=== PATIENT | female | born 1980 | race American Indian/Alaskan Native ===

== ENCOUNTER 2017-06-19 05:31 | Emergency (ER) | payer BC ==
[2017-06-19 06:00] LABS: Basophils # (Auto) 0.1 K/mm3 (0.0-0.1); Basophils % (Auto) 1.2 % (0.0-1.8); Eosinophils # (Auto) 0.1 K/mm3 (0.0-0.4); Eosinophils % (Auto) 1.4 % (0.0-4.3); Hematocrit 38.1 % (30.3-42.9); Hemoglobin 13.1 gm/dl (10.1-14.3); Lymphocytes % (Auto) 51.9 % (13.4-35.0); Mean Corpuscular HGB Conc 34 % (30-34); Mean Corpuscular Hemoglobin 32 pg (28-32); Mean Corpuscular Volume 93 fl (79-97); Monocytes # (Auto) 0.4 K/mm3 (0.0-0.8); Monocytes % (Auto) 7.7 % (0.0-7.3); Platelet Count 295 K/mm3 (140-440); Red Blood Count 4.09 M/mm3 (3.65-5.03); Red Cell Distribution Width 13.9 % (13.2-15.2)
[2017-06-19 06:13] LABS: Bilirubin,Urine NEG (Negative); Blood,Urine SM (Negative); Color,Urine Yellow (Yellow); Mucus,Urine 3+ /HPF; Protein,Urine <15 mg/dL mg/dL (Negative); Urobilinogen,Urine < 2.0 mg/dL (<2.0)
[2017-06-19 06:15] LABS: Alanine Aminotransferase 11 units/L (7-56); Albumin 4.2 g/dL (3.9-5); BUN/Creatinine Ratio 23; Blood Urea Nitrogen 14 mg/dL (7-17); Calcium 9.1 mg/dL (8.4-10.2); Hemolysis Index 8
--- NOTE | 2017-06-19 07:04 | Emergency Department Report ---
ED Abdominal Pain HPI - General Chief Complaint: Abdominal Pain Stated Complaint: ABD PAIN Time Seen by Provider: 06/19/17 07:03 Source: patient Mode of arrival: Ambulatory Limitations: No Limitations - History of Present Illness Initial Comments: Healthy 36-year-old woman presents with midepigastric abdominal pain over the past 45 minutes, of sudden onset, which felt like a severe cramp, with no prior history of same. Pain has essentially subsided almost completely while waiting for examination here, and patient declines offer for immediate treatment for discomfort. Her immediate past history is that she had been on implant for contraception, and this was removed at the beginning of May, and she had a period that started perhaps 1 or 2 days early, and was shortened by about 1 or 2 days, and she cannot definitely rule out , as she is sexually active. She has no other history of gastrointestinal problems, but takes no routine medications, has not had any unusual foods, and had no unusual incident or activities in the past couple of days. -: Sudden Location: epigastric Radiation: back Migration to: no migration Severity scale (0 -10): 5 Quality: cramping Consistency: intermittent, now resolved Improves With: nothing Worsens With: nothing Associated Symptoms: denies other symptoms - Related Data LMP Date: 06/05/17 Previous Rx's Medication Instructions Recorded Last Taken Type Dicyclomine [Bentyl] 10 mg PO QID PRN #10 capsule 06/19/17 Unknown Rx Ondansetron [Zofran ODT TAB] 8 mg PO Q8HR PRN #5 tab.rapdis 06/19/17 Unknown Rx Allergies Allergy/AdvReac Type Severity Reaction Status Date / Time No Known Allergies Allergy Unverified 06/19/17 05:36 ED Review of Systems ROS: Stated complaint: ABD PAIN Other details as noted in HPI Comment: All other systems reviewed and negative Constitutional: denies: chills, fever Respiratory: denies: cough, shortness of breath, wheezing Cardiovascular: denies: chest pain, palpitations Endocrine: no symptoms reported Gastrointestinal: abdominal pain. denies: nausea, vomiting Musculoskeletal: denies: back pain, joint swelling, arthralgia Skin: as per HPI Neurological: denies: headache, weakness, paresthesias Psychiatric: denies: anxiety, depression ED Past Medical Hx - Past Medical History Previous Medical History?: No - Surgical History Past Surgical History?: No - Social History Smoking Status: Never Smoker Substance Use Type: None - Medications Home Medications: Home Medications Medication Instructions Recorded Confirmed Last Taken Type Dicyclomine [Bentyl] 10 mg PO QID PRN #10 capsule 06/19/17 Unknown Rx Ondansetron [Zofran ODT TAB] 8 mg PO Q8HR PRN #5 tab.rapdis 06/19/17 Unknown Rx ED Physical Exam - General Limitations: No Limitations General appearance: alert, in no apparent distress - Head Head exam: Present: atraumatic, normocephalic - Eye Eye exam: Present: normal appearance - ENT ENT exam: Present: mucous membranes moist - Neck Neck exam: Present: normal inspection - Respiratory Respiratory exam: Present: normal lung sounds bilaterally. Absent: respiratory distress - Cardiovascular Cardiovascular Exam: Present: regular rate, normal rhythm. Absent: systolic murmur, diastolic murmur, rubs, gallop - GI/Abdominal GI/Abdominal exam: Present: soft, tenderness (minimal discomfort in epigastrium , no rebound or guarding), normal bowel sounds. Absent: guarding, rebound, rigid - Extremities Exam Extremities exam: Present: normal inspection - Back Exam Back exam: Present: normal inspection - Neurological Exam Neurological exam: Present: alert, oriented X3 - Psychiatric Psychiatric exam: Present: normal affect, normal mood - Skin Skin exam: Present: warm, dry, intact, normal color. Absent: rash ED Course Vital Signs 06/19/17 06/19/17 06/19/17 05:33 06:14 06:21 Temperature 97.5 F L 98.0 F Pulse Rate 69 68 Respiratory 17 16 Rate Blood Pressure 131/93 128/91 Blood Pressure 128/91 [Left] O2 Sat by Pulse 100 99 100 Oximetry 06/19/17 06/19/17 06:30 07:00 Temperature Pulse Rate Respiratory Rate Blood Pressure 118/81 118/78 Blood Pressure [Left] O2 Sat by Pulse 100 100 Oximetry ED Medical Decision Making - Lab Data Result diagrams: 06/19/17 05:50 06/19/17 05:50 - Medical Decision Making This previously healthy patient has had an isolated episode of abdominal discomfort, in the epigastrium, typical of a spasmodic cramp, which has resolved , with no recurrent activity. Laboratory evaluation is stable, urinalysis is normal, and test is negative. She does have a history of mittelschmerz symptoms, but this does not appear to be the same, and her lower abdomen is nontender. Patient can be discharged home, as is likely an isolated episode, may resume regular activities, and I will give her a short course of antispasmodic and antinausea medication if she has any recurrences. Critical Care Time: No Critical care attestation.: If time is entered above; I have spent that time in minutes in the direct care of this critically ill patient, excluding procedure time. ED Disposition Clinical Impression: Abdominal cramping Disposition: DC-01 TO HOME OR SELFCARE Is pt being admited?: No Does the pt Need Aspirin: No Condition: Good Instructions: Abdominal Pain (ED) Additional Instructions: Take Bentyl, one tablet or capsule up to 4 times per day if you have any recurrent cramping Zofran, 1 tablet up to every 8 hours if there is any associated or persistent nausea. You may resume your regular home and work activities as long as you're feeling well. See your doctor for recheck if you have recurrent symptoms, and he may return to the emergency room any time if you have any severe recurrences. Prescriptions: Dicyclomine [Bentyl] 10 mg PO QID PRN #10 capsule PRN Reason: cramps Ondansetron [Zofran ODT TAB] 8 mg PO Q8HR PRN #5 tab.rapdis PRN Reason: Nausea Referrals: PRIMARY CARE, [Primary Care Provider] - 3-5 Days Time of Disposition: 08:11
[2017-06-19 07:07] VITALS: BP 118/78
[2017-06-19] MEDS ORDERED: NORMODYNE IV PRN (07:19)
[2017-06-19 07:44] LABS: HCG Qualitative,Urine Negative (Negative)
== END 2017-06-19 08:52 | disposition home or self-care (01) ==
LOC: ED 05:31 → EEVIPCON 05:31 → ED 08:52
DX: R10.13 Epigastric pain (principal)
CPT/HCPCS: 36415; 80053; 81001; 81025; 85025; 99283

== ENCOUNTER 2017-08-07 01:26 | Emergency (ER) | payer BC ==
[2017-08-07 01:44] VITALS: BP 109/66
[2017-08-07 02:24] LABS: Basophils % (Auto) 0.6 % (0.0-1.8); Eosinophils # (Auto) 0.1 K/mm3 (0.0-0.4); Eosinophils % (Auto) 1.1 % (0.0-4.3); Hematocrit 38.2 % (30.3-42.9); Hemoglobin 12.9 gm/dl (10.1-14.3); Lymphocytes % (Auto) 45.3 % (13.4-35.0); Mean Corpuscular HGB Conc 34 % (30-34); Mean Corpuscular Hemoglobin 32 pg (28-32); Mean Corpuscular Volume 94 fl (79-97); Monocytes # (Auto) 0.4 K/mm3 (0.0-0.8); Monocytes % (Auto) 6.7 % (0.0-7.3); Platelet Count 312 K/mm3 (140-440); Red Blood Count 4.05 M/mm3 (3.65-5.03)
[2017-08-07 02:40] LABS: Alanine Aminotransferase 8 units/L (7-56); Albumin 4.1 g/dL (3.9-5); BUN/Creatinine Ratio 20; Blood Urea Nitrogen 12 mg/dL (7-17); Hemolysis Index 5
[2017-08-07 02:58] LABS: Bilirubin,Urine NEG (Negative); Blood,Urine MOD (Negative); Color,Urine Yellow (Yellow); Mucus,Urine 3+ /HPF; Urobilinogen,Urine < 2.0 mg/dL (<2.0)
[2017-08-07 02:59] LABS: HCG Qualitative,Urine Positive (Negative)
== END 2017-08-07 02:15 | disposition left against medical advice (07) ==
LOC: ED 01:26
DX: R10.9 Unspecified abdominal pain (principal); Z53.21 Procedure and treatment not carried out due to patient leaving prior to being seen by health care provider
CPT/HCPCS: 36415; 80053; 81001; 81025; 85025

== ENCOUNTER 2017-08-16 22:14 | Emergency (ER) | payer BC ==
[2017-08-16 23:00] LABS: Basophils # (Auto) 0.2 K/mm3 (0.0-0.1); Basophils % (Auto) 2.1 % (0.0-1.8); Eosinophils % (Auto) 0.6 % (0.0-4.3); Hematocrit 37.5 % (30.3-42.9); Hemoglobin 12.7 gm/dl (10.1-14.3); Lymphocytes # (Auto) 2.7 K/mm3 (1.2-5.4); Lymphocytes % (Auto) 37.7 % (13.4-35.0); Mean Corpuscular HGB Conc 34 % (30-34); Mean Corpuscular Hemoglobin 32 pg (28-32); Mean Corpuscular Volume 94 fl (79-97); Monocytes # (Auto) 0.4 K/mm3 (0.0-0.8); Monocytes % (Auto) 5.8 % (0.0-7.3); Platelet Count 297 K/mm3 (140-440); Red Cell Distribution Width 14.3 % (13.2-15.2)
[2017-08-16 23:18] LABS: Alanine Aminotransferase 10 units/L (7-56); Albumin 4.2 g/dL (3.9-5); BUN/Creatinine Ratio 12; Blood Urea Nitrogen 7 mg/dL (7-17); Calcium 9.3 mg/dL (8.4-10.2); Hemolysis Index 9
[2017-08-17 00:40] LABS: Bacteria,Urine 1+ /HPF (Negative); Bilirubin,Urine NEG (Negative); Blood,Urine LG (Negative); Color,Urine Yellow (Yellow); Mucus,Urine 3+ /HPF
[2017-08-17 00:43] LABS: RBC,Urine > 182.0 /HPF (0.0-6.0)
[2017-08-17 00:44] LABS: HCG Qualitative,Urine Positive (Negative)
--- NOTE | 2017-08-17 02:10 | Ultrasound Report ---
FINAL REPORT PROCEDURE: US OB TRANSVAGINAL TECHNIQUE: Real-time transvaginal sonography of the uterus, placenta, amniotic fluid, adnexa, and fetus was performed with image documentation. Measurements were obtained to determine age/size. M-mode Doppler was used to document heartbeat. CPT 87793 HISTORY: vaginal bleeding COMPARISON: No prior studies are available for comparison. FINDINGS: Uterus measures 10 x 4.9 x 5.7 centimeters. Endometrium is thickened measuring 14 millimeters. There is no endometrial fluid. The right ovary measures 4.3 x 2 x 4.1 centimeters and contains a complex cyst measuring 2.6 centimeters. The left ovary measures 2.7 x 1.2 x 2.1 centimeters and contains a complex cyst measuring 14 millimeters. There is complex free pelvic fluid. There is no specific evidence of intrauterine or ectopic . Correlation with beta HCG measurements may be helpful. IMPRESSION: There is no evidence of intrauterine or ectopic . There are complex possibly hemorrhagic cysts in the ovaries. There is no evidence of ectopic or torsion. There is endometrial hyperplasia. There is free pelvic fluid which is nonspecific.
--- NOTE | 2017-08-17 02:12 | Ultrasound Report ---
FINAL REPORT PROCEDURE: US OB transabdominal TECHNIQUE: Real-time transabdominal sonography of the uterus, placenta, amniotic fluid, adnexa, and fetus was performed with image documentation. Measurements were obtained to determine age/size. M-mode Doppler was used to document heartbeat. HISTORY: vaginal bleeding COMPARISON: No prior studies are available for comparison. FINDINGS: Uterus measures 10 x 4.9 x 5.7 centimeters. Endometrium is thickened measuring 14 millimeters. There is no endometrial fluid. The right ovary measures 4.3 x 2 x 4.1 centimeters and contains a complex cyst measuring 2.6 centimeters. The left ovary measures 2.7 x 1.2 x 2.1 centimeters and contains a complex cyst measuring 14 millimeters. There is complex free pelvic fluid. There is no specific evidence of intrauterine or ectopic . Correlation with beta HCG measurements may be helpful. IMPRESSION: There is no evidence of intrauterine or ectopic . There are complex possibly hemorrhagic cysts in the ovaries. There is no evidence of ectopic or torsion. There is endometrial hyperplasia. There is free pelvic fluid which is nonspecific.
--- NOTE | 2017-08-17 02:19 | Emergency Department Report ---
ED Abdominal Pain HPI - General Chief Complaint: Abdominal Pain Stated Complaint: ABD PAIN; VAG BLEEDING; 8WKS GEST Time Seen by Provider: 08/17/17 00:12 Source: patient Mode of arrival: Ambulatory Limitations: No Limitations - History of Present Illness Initial Comments: 2 weeks of bilateral lower abdominal pain that is intermittent, not affected by eating or urination. Patient has been taking Tylenol for abdominal pain. 2 days ago started having vaginal bleeding where she was using 1 pad per day. She was thinking that it was just related to her . She believes that she is approximately 8 weeks by last menstrual period. This is her fourth . The prior 3 pregnancies were uncomplicated. - Related Data Previous Rx's Medication Instructions Recorded Last Taken Type Dicyclomine [Bentyl] 10 mg PO QID PRN #10 capsule 06/19/17 Unknown Rx Ondansetron [Zofran ODT TAB] 8 mg PO Q8HR PRN #5 tab.rapdis 06/19/17 Unknown Rx Allergies Allergy/AdvReac Type Severity Reaction Status Date / Time No Known Allergies Allergy Verified 08/16/17 22:19 ED Review of Systems ROS: Stated complaint: ABD PAIN; VAG BLEEDING; 8WKS GEST Other details as noted in HPI Comment: All other systems reviewed and negative Gastrointestinal: abdominal pain Genitourinary: other (vaginal bleeding) ED Past Medical Hx - Past Medical History Previous Medical History?: No - Surgical History Past Surgical History?: No - Social History Smoking Status: Never Smoker Substance Use Type: None - Medications Home Medications: Home Medications Medication Instructions Recorded Confirmed Last Taken Type Dicyclomine [Bentyl] 10 mg PO QID PRN #10 capsule 06/19/17 Unknown Rx Ondansetron [Zofran ODT TAB] 8 mg PO Q8HR PRN #5 tab.rapdis 06/19/17 Unknown Rx ED Physical Exam - General Limitations: No Limitations General appearance: alert, in no apparent distress - Head Head exam: Present: atraumatic, normocephalic - Eye Eye exam: Present: normal appearance - ENT ENT exam: Present: mucous membranes moist - Neck Neck exam: Present: normal inspection - Respiratory Respiratory exam: Present: normal lung sounds bilaterally. Absent: respiratory distress - Cardiovascular Cardiovascular Exam: Present: regular rate, normal rhythm. Absent: systolic murmur, diastolic murmur, rubs, gallop - GI/Abdominal GI/Abdominal exam: Present: soft, tenderness (mild RLQ, suprapubic, LLQ tenderness), normal bowel sounds. Absent: distended, guarding, rebound - Extremities Exam Extremities exam: Present: normal inspection - Back Exam Back exam: Present: normal inspection - Neurological Exam Neurological exam: Present: alert, oriented X3 - Psychiatric Psychiatric exam: Present: normal affect, normal mood - Skin Skin exam: Present: warm, dry, intact, normal color. Absent: rash ED Course Vital Signs 08/16/17 08/16/17 22:19 23:14 Temperature 98.7 F 98.5 F Pulse Rate 78 68 Respiratory 16 18 Rate Blood Pressure 119/79 Blood Pressure 115/72 [Left] O2 Sat by Pulse 96 99 Oximetry ED Medical Decision Making - Lab Data Result diagrams: 08/16/17 22:42 08/16/17 22:42 - Radiology Data Radiology results: report reviewed, image reviewed - Medical Decision Making 37-year-old female approximately 8 weeks last menstrual period presents to the ER with abdominal pain and light vaginal bleeding. Urinalysis has 40 whites. Patient denies urinary complaints. I will send her urine for culture. Pelvic ultrasound shows no identifiable IUP or ectopic . Beta Quant is 5000. I'm concerned for a spontaneous . After the patient a pelvic exam, but she felt comfortable following up with her OB for this. The patient will follow up with her OB for repeat of her Quant and further evaluation of her abdominal pain. I have instructed her to continue taking Tylenol for abdominal pain. Patient has never had to have RhoGAM before with her prior pregnancies. - Differential Diagnosis IUP, ectopic , spontaneous , uti Critical care attestation.: If time is entered above; I have spent that time in minutes in the direct care of this critically ill patient, excluding procedure time. ED Disposition Clinical Impression: Threatened , Abdominal pain Disposition: DC-01 TO HOME OR SELFCARE Is pt being admited?: No Does the pt Need Aspirin: No Condition: Stable Instructions: Abdominal Pain (ED) Additional Instructions: Your presentation is concerning for an . Please follow up with your OB for a repeat of your hormone level. Today it was 5000. Continue taking the tylenol as needed for pain relief. Referrals: SHAQUILLE BROWN [Staff Physician] - 3-5 Days
[2017-08-17] MEDS: ULTRAM PO ONE (03:02)
[2017-08-17 03:03] VITALS: BP 108/77
== END 2017-08-17 03:05 | disposition home or self-care (01) ==
LOC: ED 22:14
DX: O20.0 Threatened abortion (principal); Z3A.08 8 weeks gestation of pregnancy
CPT/HCPCS: 36415; 76801; 76817; 80053; 81001; 81025; 84702; 84703; 85025

== ENCOUNTER 2017-09-02 17:14 | Emergency (ER) | payer BC ==
[2017-09-02 17:32] VITALS: BP 114/67
[2017-09-02 18:11] LABS: Bilirubin,Urine NEG (Negative); Blood,Urine NEG (Negative); Color,Urine Yellow (Yellow); Mucus,Urine 1+ /HPF; Protein,Urine <15 mg/dL mg/dL (Negative)
[2017-09-02 18:12] LABS: HCG Qualitative,Urine Positive (Negative)
--- NOTE | 2017-09-02 18:16 | Emergency Department Report ---
ED Female HPI - General Chief complaint: Urogenital-Female Stated complaint: ABDOMINAL PAIN Time Seen by Provider: 09/02/17 18:12 Source: patient Mode of arrival: Ambulatory Limitations: No Limitations - Related Data Previous Rx's Medication Instructions Recorded Last Taken Type Dicyclomine [Bentyl] 10 mg PO QID PRN #10 capsule 06/19/17 Unknown Rx Ondansetron [Zofran ODT TAB] 8 mg PO Q8HR PRN #5 tab.rapdis 06/19/17 Unknown Rx Allergies Allergy/AdvReac Type Severity Reaction Status Date / Time No Known Allergies Allergy Verified 08/16/17 22:19 ED Review of Systems ROS: Stated complaint: ABDOMINAL PAIN Other details as noted in HPI ED Past Medical Hx - Past Medical History Previous Medical History?: No - Surgical History Past Surgical History?: No - Social History Smoking Status: Never Smoker Substance Use Type: None - Medications Home Medications: Home Medications Medication Instructions Recorded Confirmed Last Taken Type Dicyclomine [Bentyl] 10 mg PO QID PRN #10 capsule 06/19/17 Unknown Rx Ondansetron [Zofran ODT TAB] 8 mg PO Q8HR PRN #5 tab.rapdis 06/19/17 Unknown Rx ED Physical Exam - General Limitations: No Limitations ED Course Vital Signs 09/02/17 17:27 Temperature 98.7 F Pulse Rate 90 Respiratory 18 Rate Blood Pressure 114/67 O2 Sat by Pulse 100 Oximetry Critical care attestation.: If time is entered above; I have spent that time in minutes in the direct care of this critically ill patient, excluding procedure time. ED Disposition Condition: Stable Referrals: PRIMARY CARE, [Primary Care Provider] - 3-5 Days
== END 2017-09-02 18:28 | disposition left against medical advice (07) ==
LOC: ED 17:14
DX: R10.9 Unspecified abdominal pain (principal); Z53.21 Procedure and treatment not carried out due to patient leaving prior to being seen by health care provider
CPT/HCPCS: 81001; 81025

== ENCOUNTER 2017-09-07 07:32 | Day surgery (SDC) | payer BC ==
[2017-09-07] MEDS ORDERED: NACL BACTERIOSTATIC INFILTRATI ONE (08:06)
--- NOTE | 2017-09-07 08:38 | Short Stay Summary ---
Short Stay Documentation Date of service: 09/07/17 Narrative H&P: Pt is a 37yo BF LMP 06/21/17 presents for surgical evaluation and treatment of retained POC confirmed by pelvic u/s. [facility] [id number] on 08/22/17. - History Principal diagnosis: Incomplete H&P: obtained from office Past Medical History: No medical history Past Surgical History: No surgical history Social history: no significant social history, single - Allergies and Medications Current Medications: Allergies No Known Allergies Allergy (Verified 09/06/17 15:00) Home Medications Medication Instructions Recorded Confirmed Last Taken Type No Known Home Medications [No 09/06/17 09/06/17 Unknown History Reported Home Medications] Active Medications Cefazolin Sodium (Ancef/Sterile Water 2 Gm/20 Ml) 2 gm in 20 mls @ 80 mls/hr IV PREOP NR; Protocol Lactated Ringer's (Lactated Ringers) 1,000 mls @ 125 mls/hr IV DIRECT TITO - Physical exam General appearance: mild distress Integumentary: no rash HEENT: Atraumatic Lungs: Clear to auscultation Breasts: deferred Heart: Regular rate Gastrointestinal: normal Female Genitourinary: deferred Rectal Exam: deferred Extremities: no ischemia Neurological: Normal gait, Normal speech - Brief post op/procedure progress note Date of procedure: 09/07/17 Pre-op diagnosis: Incomplete Post-op diagnosis: same Procedure: Dilatation and curettage Anesthesia: MAC Findings: An 8-10 week size uterus with scant amounts of products of conception Surgeon: VIRGINIA GU Estimated blood loss: 50-100ml Pathology: list (POC) Specimen disposition: to lab Condition: stable - Hospital course Hospital course: Unremarkable - Disposition Condition at discharge: Good Disposition: DC-01 TO HOME OR SELFCARE - Discharge Diagnoses (1) Incomplete Status: Resolved Short Stay Discharge Plan Activity: no restrictions Diet: regular Follow up with: PRIMARY CAREMD [Primary Care Provider] - 7 Days VIRGINIA GU MD [Staff Physician] - 14 Days Prescriptions: Doxycycline [Vibramycin CAP] 100 mg PO Q12HR #14 capsule Ibuprofen [Motrin] 800 mg PO Q8HR PRN #30 tablet PRN Reason: Pain, Moderate (4-6) Methylergonovine [Methergine] 0.2 mg PO Q8HR #6 tablet
[2017-09-07 08:41] LABS: Hematocrit 32.6 % (30.3-42.9)
[2017-09-07] MEDS ORDERED: SUBLIMAZE ONE (08:52)
[2017-09-07] MEDS ORDERED: DIPRIVAN 10 MG/ML IV ONE (08:52)
[2017-09-07] MEDS ORDERED: XYLOCAINE MPF 2% ONE (08:54)
[2017-09-07] MEDS ORDERED: DECADRON ONE (08:56)
[2017-09-07] MEDS ORDERED: LACTATED RINGERS 1,000 ML IV SCH ×2 (09:00→10:00)
[2017-09-07] MEDS ORDERED: ANCEF/STERILE WATER 2 GM/20 ML 2 GM/20 ML SYRINGE IV NR (09:00)
--- NOTE | 2017-09-07 09:25 | Anesthesia Day of Surgery ---
Anesthesia Day of Surgery - Day of Surgery Patient Examined: Yes Patient H&P Reviewed: Yes Patient is NPO: Yes
--- NOTE | 2017-09-07 09:25 | Anesthesia Consultation ---
Anesthesia Consult and Med Hx Date of service: 09/07/17 - Airway Anesthetic Teeth Evaluation: Good ROM Head & Neck: Adequate Mental/Hyoid Distance: Adequate Mallampati Class: Class I Intubation Access Assessment: Probably Good - Pulmonary Exam CTA: Yes - Cardiac Exam Cardiac Exam: RRR - Pre-Operative Health Status ASA Pre-Surgery Classification: ASA1 Proposed Anesthetic Plan: General - Pulmonary Hx Smoking: No Hx Asthma: No - Cardiovascular System Hx Hypertension: No - Central Nervous System Hx Psychiatric Problems: No - Hematic Hx Anemia: No - Other Systems Hx Cancer: No
[2017-09-07] MEDS ORDERED: DILAUDID IV PRN (09:26)
[2017-09-07] MEDS ORDERED: ZOFRAN IV PRN (09:26)
[2017-09-07] MEDS ORDERED: TORADOL IV PRN (09:26)
[2017-09-07] MEDS ORDERED: VERSED ONE (09:29)
[2017-09-07] MEDS ORDERED: NACL 0.9% IR ONE (09:45)
[2017-09-07] MEDS ORDERED: NEO SYNEPHRINE/NS Syringe(OR USE) IV ONE (09:45)
--- NOTE | 2017-09-07 10:06 | Operative Report ---
Operative Report Operative Report: PREOPERATIVE DIAGNOSIS: Incomplete POSTOPERATIVE DIAGNOSIS: Same OPERATIVE PROCEDURE: Dilatation and curettage. SURGEON: Jose Curry MD ANESTHESIA: Gen. mask ANESTHESIOLOGIST: Dr. Hodges ESTIMATED BLOOD LOSS: 50 mL FINDINGS: An 8-10 week size uterus with scant amounts of products of conception COMPLICATIONS: None COUNTS: Correct x3. PROCEDURE: After the patient was correctly identified, and after general anesthesia was administered, the patient was prepped and draped in the usual sterile fashion and placed in dorsal lithotomy position. First, the bladder was emptied using a straight catheter. Next, a speculum was placed in the vaginal vault and the anterior lip of the cervix was grasped using a single- tooth tenaculum. The uterus was sounded to 10 cm. The cervical os was sequentially dilated, and an 10 mm vaccurette was used to suction blood and products of conception from the uterine cavity. After all the products of conception were removed, the procedure was considered complete. All instruments were removed from the vagina. The patient tolerated the procedure well and was transferred to the recovery room in stable condition.
[2017-09-07 10:53] VITALS: BP 116/76
== END 2017-09-07 11:30 | disposition home or self-care (01) ==
LOC: OR 07:32
PROVIDERS: ATTEND Obstetrics & Gynecology
DX: O02.1 Missed abortion (principal); Z98.890 Other specified postprocedural states
CPT/HCPCS: 36415; 59820; 85014; 85018; 88305; J0690; J1100; J2250; J2370; J2405; J2704; J3010; J7120

== ENCOUNTER 2017-10-14 03:01 | Emergency (ER) | payer BC ==
[2017-10-14] MEDS ORDERED: PERCOCET 5/325 PO ONE (04:35)
--- NOTE | 2017-10-14 04:40 | Emergency Department Report ---
<OCHOA RODRIGUEZ - Last Filed: 10/14/17 07:02> ED Fall HPI - General Chief Complaint: Fall Stated Complaint: FALL/HEAD/BACK PAIN Time Seen by Provider: 10/14/17 03:59 Source: patient Mode of arrival: Stretcher - History of Present Illness Initial Comments: 89 -[place] female presents to the emergency room stating she was walking up stairs and slipped on some water on the floor. Patient reports that she fell and hit the back of her head. Patient reports that bystander told her she had passed out for a few minutes. Patient reports that she has pain from the back of her head that radiates to the back of her neck and runs down to the center of her back. Patient reports that she has blurred vision and flashes of light. She denies any nausea or vomiting admits to a headache that is 10 out of 10. She reports the pain to 10 out of 10. Patient reports her last menstrual period was June 2017. She reports that she has bilateral shoulder pain but left is worse than right. Patient denies any past medical history currently takes no medication and has no known drug allergies. Complaint: fall -: This morning Fall From: standing When Fall Occurred: other (less than hour prior to arrival) Fall Witnessed: yes, by bystander Place Fall Occurred: work Loss of Consciousness: second(s) Prolonged Down Time?: no Symptoms Prior to Fall: none Location: head, back Location - Extremities: Left: Shoulder (left greater than right), Right: Shoulder Severity: severe Severity scale (0 -10): 10 Quality: sharp, aching Context: tripped/slipped (water on the floor) Associated Symptoms: headache - Related Data Home Medications Medication Instructions Recorded Confirmed Last Taken Ibuprofen 800 mg PO TID 09/07/17 09/07/17 09/06/17 Previous Rx's Medication Instructions Recorded Last Taken Type Doxycycline [Vibramycin CAP] 100 mg PO Q12HR #14 capsule 09/07/17 Unknown Rx Ibuprofen [Motrin] 800 mg PO Q8HR PRN #30 tablet 09/07/17 Unknown Rx Methylergonovine [Methergine] 0.2 mg PO Q8HR #6 tablet 09/07/17 Unknown Rx Acetaminophen [Tylenol Arthritis] 650 mg PO Q6HR PRN #30 tablet.er 10/14/17 Unknown Rx Ibuprofen [Motrin] 600 mg PO Q8H PRN #30 tablet 10/14/17 Unknown Rx Allergies Allergy/AdvReac Type Severity Reaction Status Date / Time No Known Allergies Allergy Verified 09/06/17 15:00 ED Review of Systems ROS: Stated complaint: FALL/HEAD/BACK PAIN Other details as noted in HPI Eyes: vision change (blurred vision with flashing lights) Musculoskeletal: back pain Neurological: headache Psychiatric: denies: anxiety, depression ED Past Medical Hx - Past Medical History Previous Medical History?: Yes Hx Hypertension: No Hx Asthma: No Additional medical history: Had a miscarriage August 2017 10 weeks - Social History Smoking Status: Never Smoker - Medications Home Medications: Home Medications Medication Instructions Recorded Confirmed Last Taken Type Doxycycline [Vibramycin CAP] 100 mg PO Q12HR #14 capsule 09/07/17 Unknown Rx Ibuprofen 800 mg PO TID 09/07/17 09/07/17 09/06/17 History Ibuprofen [Motrin] 800 mg PO Q8HR PRN #30 tablet 09/07/17 Unknown Rx Methylergonovine [Methergine] 0.2 mg PO Q8HR #6 tablet 09/07/17 Unknown Rx Acetaminophen [Tylenol Arthritis] 650 mg PO Q6HR PRN #30 tablet.er 10/14/17 Unknown Rx Ibuprofen [Motrin] 600 mg PO Q8H PRN #30 tablet 10/14/17 Unknown Rx ED Physical Exam - General Limitations: No Limitations General appearance: alert, in no apparent distress - Head Head exam: Present: atraumatic, normocephalic - Eye Eye exam: Present: PERRL, EOMI - ENT ENT exam: Present: mucous membranes moist - Neck Neck exam: Present: tenderness - Respiratory Respiratory exam: Present: normal lung sounds bilaterally. Absent: respiratory distress - Cardiovascular Cardiovascular Exam: Present: regular rate, normal rhythm. Absent: systolic murmur, diastolic murmur, rubs, gallop - Back Exam Back exam: Present: vertebral tenderness - Expanded Neurological Exam Expanded Patient oriented to: Present: person, place, time Cranial nerves: EOM's Intact: Normal, Gag Reflex: Normal, Tongue Deviation: Normal, Nystagmus: Normal, Facial Sensation: Normal, Facial Palsy with Forehead Movement: Normal, Facial Palsy without Forehead Movement: Normal Motor strength exam: RUE: 4, LUE: 4, RLE: 4, LLE: 4 Best Eye Response ([place]): (4) open spontaneously Best Motor Response ([place]): (6) obeys commands Best Verbal Response ([place]): (5) oriented Max Total: 15 - Psychiatric Psychiatric exam: Present: normal affect, normal mood - Skin Skin exam: Present: warm, dry, intact, normal color. Absent: rash ED Course Vital Signs 10/14/17 03:14 Temperature 98.3 F Pulse Rate 79 Respiratory 20 Rate Blood Pressure 128/80 O2 Sat by Pulse 95 Oximetry ED Medical Decision Making - Radiology Data Radiology results: report reviewed Ordering Physician: JULIET HARDEN Date of Service: 10/14/17 Procedure(s): CT cervical spine wo con Accession Number(s): [id number] cc: JULIET HARDEN FINAL REPORT PROCEDURE: CT CERVICAL SPINE WO CON TECHNIQUE: Computerized tomography of the cervical spine was performed from the skull base to T1 without contrast material. HISTORY: Ground level fall with head and neck pain COMPARISON: No prior studies are available for comparison. FINDINGS: There are no fractures or malalignments. The disc spaces are normal. The facet joints are intact. Prevertebral soft tissues are normal in thickness. There is no spinal or foraminal stenosis. IMPRESSION: No significant abnormality. Transcribed By: CO Dictated By: AMIE BANG MD Electronically Authenticated By: AMIE BANG MD Signed Date/Time: 10/14/17458 DD/ 8 TD/TT: 10/14/17458 C-spine is cleared patient can have c-collar removed to have further x-rays performed. Orders were given to layout technician Mohamed FINAL REPORT PROCEDURE: XR SPINE THORACIC 3V TECHNIQUE: Thoracic spine radiographs, including AP and lateral projections. CPT 00957 HISTORY: Ground level fall c/o back pain COMPARISON: No prior studies are available for comparison. FINDINGS: Alignment: Normal . Vertebral body height: Normal . Disk spaces: Normal . Fracture(s): None . Bone mineralization: Normal . IMPRESSION: Normal Examination. Transcribed By: CO Dictated By: AMIE BANG MD Electronically Authenticated By: AMIE BANG MD Signed Date/Time: 10/14/17644 DD/ 4 TD/TT: 10/14/17644 Ordering Physician: JULIET HARDEN Date of Service: 10/14/17 Procedure(s): XR spine lumbosacral 2-3V Accession Number(s): [id number] cc: JULIET HARDEN Fluoro Time In Minutes: FINAL REPORT PROCEDURE: XR SPINE LUMBOSACRAL 2-3V TECHNIQUE: Lumbar spine radiographs, frontal and lateral views. CPT 42452 HISTORY: Ground level fall c/o back pain COMPARISON: No prior studies are available for comparison. FINDINGS: Alignment: Normal . Vertebral body heights/Disk spaces: Normal . Fracture(s): None . Facets: Normal . Bone mineralization: Normal . IMPRESSION: Normal Examination Transcribed By: CO Dictated By: AMIE BANG MD Electronically Authenticated By: AMIE BANG MD Signed Date/Time: 10/14/17641 DD/ 1 TD/TT: 10/14/17641 FINAL REPORT PROCEDURE: CT CERVICAL SPINE WO CON TECHNIQUE: Computerized tomography of the cervical spine was performed from the skull base to T1 without contrast material. HISTORY: Ground level fall with head and neck pain COMPARISON: No prior studies are available for comparison. FINDINGS: There are no fractures or malalignments. The disc spaces are normal. The facet joints are intact. Prevertebral soft tissues are normal in thickness. There is no spinal or foraminal stenosis. IMPRESSION: No significant abnormality. Transcribed By: CO Dictated By: AMIE BANG MD Electronically Authenticated By: AMIE BANG MD Signed Date/Time: 10/14/17458 DD/ 8 TD/TT: 10/14/17458 - Medical Decision Making Patient has been evaluated by this provider fast track. Percocet ordered for pain management. CT of head and neck x-ray of lumbar sacral Sign off to Dr. Degroot Critical care attestation.: If time is entered above; I have spent that time in minutes in the direct care of this critically ill patient, excluding procedure time. ED Disposition Clinical Impression: Fall Disposition: DC-01 TO HOME OR SELFCARE Condition: Stable Instructions: Concussion (ED) Additional Instructions: Rest, and avoid heavy lifting. Avoid strenuous physical activity. Pain typically gets worse before it gets better after a fall. Addition, patient may have a concussion, which is a form of mild brain injury. Symptoms of concussion including lightheadedness, fatigue, confusion, sensitivity to light, sensitivity to sound. Do not return to work until cleared by employee health. Please follow up with employee health within the next 36 hours. If patient requires further outpatient follow-up after employee health, she may follow up with Dr. Casiano for any orthopedic concerns (muscular or bone related pain), or the primary care doctor, Dr. Leland Farrell Patient can take ibuprofen [id number], 600 mg with food, alternating with acetaminophen, [id number], 650 mg. Please return to the ER right away with hip pain, worsening pain, migration of pain, projectile vomiting, confusion, inability to tolerate liquid feeds. Referrals: JAMES GRANT MD [Staff Physician] - 3-5 Days HÉCTOR CASIANO MD [Staff Physician] - 3-5 Days <JAMES DEGROOT - Last Filed: 10/14/17 08:25> ED Course - Reevaluation(s) Reevaluation #1: 10/14/17 08:[address] scan of the brain is negative. The patient walks with a steady gait. She has mild dizziness which is most likely a concussion. She is instructed to follow-up with employee health within the next 36 hours. ED Disposition Is pt being admited?: No Does the pt Need Aspirin: No
--- NOTE | 2017-10-14 05:00 | Cat Scan Report ---
FINAL REPORT PROCEDURE: CT CERVICAL SPINE WO CON TECHNIQUE: Computerized tomography of the cervical spine was performed from the skull base to T1 without contrast material. HISTORY: Ground level fall with head and neck pain COMPARISON: No prior studies are available for comparison. FINDINGS: There are no fractures or malalignments. The disc spaces are normal. The facet joints are intact. Prevertebral soft tissues are normal in thickness. There is no spinal or foraminal stenosis. IMPRESSION: No significant abnormality.
--- NOTE | 2017-10-14 06:43 | XRay Report ---
FINAL REPORT PROCEDURE: XR SPINE LUMBOSACRAL 2-3V TECHNIQUE: Lumbar spine radiographs, frontal and lateral views. CPT 39352 HISTORY: Ground level fall c/o back pain COMPARISON: No prior studies are available for comparison. FINDINGS: Alignment: Normal . Vertebral body heights/Disk spaces: Normal . Fracture(s): None . Facets: Normal . Bone mineralization: Normal . IMPRESSION: Normal Examination
--- NOTE | 2017-10-14 06:45 | XRay Report ---
FINAL REPORT PROCEDURE: XR SPINE CERVICAL 2-3V TECHNIQUE: Cervical spine complete, including AP, lateral, open-mouth odontoid, oblique and flexion and extension studies. CPT 27466 HISTORY: Ground level fall c/o neck and back pain COMPARISON: No prior studies are available for comparison. FINDINGS: Prevertebral soft tissues: Normal . Alignment in neutral position: Normal . Vertebral body movement with flexion and extension: Physiologic . Vertebral body heights/Disk spaces: Normal . Fracture(s): None . Neural foramina: Normal . Facets: Normal . Bone mineralization: Normal . IMPRESSION: Normal Examination
--- NOTE | 2017-10-14 06:46 | XRay Report ---
FINAL REPORT PROCEDURE: XR SPINE THORACIC 3V TECHNIQUE: Thoracic spine radiographs, including AP and lateral projections. CPT 28834 HISTORY: Ground level fall c/o back pain COMPARISON: No prior studies are available for comparison. FINDINGS: Alignment: Normal . Vertebral body height: Normal . Disk spaces: Normal . Fracture(s): None . Bone mineralization: Normal . IMPRESSION: Normal Examination.
--- NOTE | 2017-10-14 07:36 | Cat Scan Report ---
FINAL REPORT PROCEDURE: CT HEAD/BRAIN WO CON TECHNIQUE: Computerized tomography of the head was performed without contrast material. HISTORY: Hit head on floor ground level fall COMPARISON: No prior studies are available for comparison. FINDINGS: Skull and scalp: Normal. Paranasal sinuses: Normal. Ventricles and subarachnoid spaces: Normal. Cerebrum: No evidence of hemorrhage, acute infarction or mass . Cerebellum and brainstem: No evidence of hemorrhage, acute infarction or mass. Vasculature: Normal. Comments: None. IMPRESSION: Normal Examination
[2017-10-14] MEDS ORDERED: MOTRIN PO ONE (08:09)
[2017-10-14 08:43] VITALS: BP 120/82
== END 2017-10-14 08:44 | disposition home or self-care (01) ==
LOC: ED 03:01
DX: S06.0X1A Concussion with loss of consciousness of 30 minutes or less, initial encounter (principal); R51 Headache; M25.511 Pain in right shoulder; M54.2 Cervicalgia; M25.512 Pain in left shoulder; W10.9XXA Fall (on) (from) unspecified stairs and steps, initial encounter; Y93.01 Activity, walking, marching and hiking; Y99.0 Civilian activity done for income or pay; Y92.69 Other specified industrial and construction area as the place of occurrence of the external cause
CPT/HCPCS: 36415; 70450; 72040; 72072; 72100; 72125; 84703

== ENCOUNTER 2018-03-14 22:01 | Emergency (ER) | payer OTHER ==
--- NOTE | 2018-03-14 22:37 | Emergency Department Report ---
Blank Doc - Documentation Documentation: 37 y.o. female presents with LLQ abdominal pain and headache. She also reports nausea w/o vomiting. LMP 03/04/18 Labs ordered Fast Track for evaluation
--- NOTE | 2018-03-14 23:57 | Emergency Department Report ---
ED Abdominal Pain HPI - General Chief Complaint: Abdominal Pain Stated Complaint: HEADACHE ABD PAIN SIDE PAIN Time Seen by Provider: 03/14/18 22:31 Source: patient Mode of arrival: Ambulatory Limitations: No Limitations - History of Present Illness Initial Comments: Carrie is a very pleasant 37 yo female without significant past medical hx who presents with intermittent left lower quadrant pelvic pain and headache for the last week. She states that she always has a headache when she has pelvic pain. Last menstrual cycle was March 03 or . However she had 2 episodes of vaginal bleeding in February. She's had 4 pregnancies,. 3 vaginal deliveries. One miscarriage requiring D&C in August. She currently is pain-free currently. MD Complaint: abdominal pain -: Gradual, week(s) (1) Radiation: LLQ Migration to: no migration Severity: moderate Severity scale (0 -10): 7 Quality: stabbing Consistency: intermittent Improves With: nothing Worsens With: nothing Associated Symptoms: nausea - Related Data Home Medications Medication Instructions Recorded Confirmed Last Taken Ibuprofen 800 mg PO TID 09/07/17 09/07/17 09/06/17 Previous Rx's Medication Instructions Recorded Last Taken Type Doxycycline [Vibramycin CAP] 100 mg PO Q12HR #14 capsule 09/07/17 Unknown Rx Ibuprofen [Motrin] 800 mg PO Q8HR PRN #30 tablet 09/07/17 Unknown Rx Methylergonovine [Methergine] 0.2 mg PO Q8HR #6 tablet 09/07/17 Unknown Rx Acetaminophen [Tylenol Arthritis] 650 mg PO Q6HR PRN #30 tablet.er 10/14/17 Unknown Rx Ibuprofen [Motrin] 600 mg PO Q8H PRN #30 tablet 10/14/17 Unknown Rx Allergies Allergy/AdvReac Type Severity Reaction Status Date / Time No Known Allergies Allergy Verified 09/06/17 15:00 ED Review of Systems ROS: Stated complaint: HEADACHE ABD PAIN SIDE PAIN Other details as noted in HPI Comment: All other systems reviewed and negative Constitutional: denies: fever, malaise Respiratory: denies: cough Cardiovascular: denies: chest pain ED Past Medical Hx - Past Medical History Previous Medical History?: No Hx Hypertension: No Hx Asthma: No Additional medical history: Had a miscarriage August 2017 10 weeks - Surgical History Past Surgical History?: Yes Additional Surgical History: D&C - Social History Smoking Status: Never Smoker Substance Use Type: None - Medications Home Medications: Home Medications Medication Instructions Recorded Confirmed Last Taken Type Doxycycline [Vibramycin CAP] 100 mg PO Q12HR #14 capsule 09/07/17 Unknown Rx Ibuprofen 800 mg PO TID 09/07/17 09/07/17 09/06/17 History Ibuprofen [Motrin] 800 mg PO Q8HR PRN #30 tablet 09/07/17 Unknown Rx Methylergonovine [Methergine] 0.2 mg PO Q8HR #6 tablet 09/07/17 Unknown Rx Acetaminophen [Tylenol Arthritis] 650 mg PO Q6HR PRN #30 tablet.er 10/14/17 Unknown Rx Ibuprofen [Motrin] 600 mg PO Q8H PRN #30 tablet 10/14/17 Unknown Rx ED Physical Exam - General Limitations: No Limitations General appearance: alert, in no apparent distress - Head Head exam: Present: atraumatic, normocephalic - Eye Eye exam: Present: normal appearance - ENT ENT exam: Present: mucous membranes moist - Neck Neck exam: Present: normal inspection, full ROM. Absent: tenderness, meningismus - Respiratory Respiratory exam: Present: normal lung sounds bilaterally. Absent: respiratory distress, wheezes, rales, rhonchi - Cardiovascular Cardiovascular Exam: Present: regular rate, normal rhythm, normal heart sounds. Absent: systolic murmur, diastolic murmur, rubs, gallop - GI/Abdominal GI/Abdominal exam: Present: soft, normal bowel sounds. Absent: distended, tenderness - Extremities Exam Extremities exam: Present: normal inspection - Back Exam Back exam: Present: normal inspection - Neurological Exam Neurological exam: Present: alert, oriented X3 - Psychiatric Psychiatric exam: Present: normal affect, normal mood - Skin Skin exam: Present: warm, dry, intact, normal color. Absent: rash ED Course Vital Signs 03/14/18 03/15/18 22:05 00:22 Temperature 98.0 F Pulse Rate 80 Respiratory 16 18 Rate Blood Pressure 124/79 O2 Sat by Pulse 98 100 Oximetry ED Medical Decision Making - Medical Decision Making Ms. Nino is a healthy 37-year-old female presents 1 week of intemittent headache and left lower quadrant pain. Symptom-free at this time. Serum test negative. Urinalysis contaminated without overt signs of infection. Microscopic hematuria attributed to contaminated sample. Do not suspect cystitis or renal colic. I do not suspect PID. Differential Diagnosis: Ovarian cyst, irritable bowel syndrome, endometriosis, fibromyalgia I recommended follow up with her primary care physician to which she was referred Critical care attestation.: If time is entered above; I have spent that time in minutes in the direct care of this critically ill patient, excluding procedure time. ED Disposition Clinical Impression: Abdominal pain, Headache Disposition: - TO HOME OR SELFCARE Is pt being admited?: No Does the pt Need Aspirin: No Condition: Stable Instructions: Abdominal Pain (ED), Acute Headache (ED) Referrals: LUCIO GARAY DO [Primary Care Provider] - 3-5 Days Forms: Work/School Release Form(ED)
[2018-03-15 00:28] LABS: Bilirubin,Urine NEG (Negative); Blood,Urine NEG (Negative); Color,Urine Yellow (Yellow); Mucus,Urine 3+ /HPF; Protein,Urine <15 mg/dL mg/dL (Negative)
[2018-03-15 00:58] VITALS: BP 112/81
== END 2018-03-15 00:57 | disposition home or self-care (01) ==
LOC: ED 22:01
DX: R10.9 Unspecified abdominal pain (principal); R51 Headache
CPT/HCPCS: 36415; 81001; 84703